=== PATIENT | female | born 1970 | race Caucasian/White ===

== ENCOUNTER 2023-11-08 07:11 | Day surgery (SDC) | payer BC ==
[~2023-11-08] VITALS: Ht 160 cm; Wt 74.1 kg
[2023-11-08] MEDS ORDERED: Premarin1.25 MG (07:30)
[2023-11-08] MEDS ORDERED: TREXALL7.5 MG (07:31)
[2023-11-08] MEDS ORDERED: ACET325 (07:31)
[2023-11-08] MEDS ORDERED: XELJANZ XR11 MG (07:32)
[2023-11-08] MEDS ORDERED: Lactated Ringer's 1,000 ML IV ONE ×2 (07:45→07:57)
[2023-11-08] MEDS ORDERED: propofoL 50 ML IV ONE (07:57)
[2023-11-08] MEDS ORDERED: Lidocaine HCl/Pf 1% 5 ML VIAL ONE (08:12)
[2023-11-08 09:08] VITALS: BP 113/77
== END 2023-11-08 09:12 | disposition home or self-care (01) ==
LOC: ORSCSDS 07:11
PROVIDERS: Specialist
PROC: 0DBE8ZX Excision of Large Intestine, Via Natural or Artificial Opening Endoscopic, Diagnostic (ICD-10-PCS; principal; 2023-11-08 08:15)
DX: R19.7 Diarrhea, unspecified (principal); K62.5 Hemorrhage of anus and rectum; Z80.0 Family history of malignant neoplasm of digestive organs; K57.30 Diverticulosis of large intestine without perforation or abscess without bleeding; K64.8 Other hemorrhoids; K64.4 Residual hemorrhoidal skin tags; Z79.899 Other long term (current) drug therapy
CPT/HCPCS: 88305; J2001; J2704; J7120

== ENCOUNTER → 2023-12-31 | Outpatient (CLI) | payer BC ==
[~2023-12-31] MED LIST: ACET325; Premarin1.25 MG; TREXALL7.5 MG; XELJANZ XR11 MG
[2023-12-31 16:25] LABS: U Amphetamine Screen DETECTED; U Barbituate Screen DETECTED; U Benzodiazapine Screen Not Detected; U Buprenorphine Screen Not Detected; U Cannabinoids Screen DETECTED; U Cocaine Screen Not Detected; U Methadone Screen Not Detected; U Methamphetamine Screen Not Detected; U Opiates Screen DETECTED; U Oxycodone Screen Not Detected; U Phencyclidine Screen Not Detected
== END ==
LOC: LAB SHORT 15:37 → LAB 15:37
PROVIDERS: Nurse Practitioner Family
DX: F90.0 Attention-deficit hyperactivity disorder, predominantly inattentive type (principal)